=== PATIENT | male | born 1975 | race Two or more races ===

== ENCOUNTER 2023-02-04 02:04 | Emergency (ER) | payer MEDICAID ==
[~2023-02-04] VITALS: Ht 167.6 cm; Wt 72.6 kg
[2023-02-04] MEDS ORDERED: IBUPROFEN 400 MG TABLET PO ONE (02:30)
[2023-02-04] MEDS ORDERED: IBUPROFEN 400 MG TABLET ONE (02:35)
[2023-02-04 03:15] VITALS: BP 138/79; TEMP 98.6; O2SAT 99
== END 2023-02-04 03:16 | disposition home or self-care (01) ==
LOC: ER 02:12
DX: R07.81 Pleurodynia (principal); Z59.00 Homelessness unspecified
CPT/HCPCS: 71100-TC